=== PATIENT | female | born 1980 | race Hispanic/Latino ===

== ENCOUNTER 2019-01-11 17:43 | Emergency (ER) | payer OTHER, SELFPAY ==
[2019-01-11 17:53] VITALS: BP 133/80; PULSE 101; RESP 16; TEMP 36.9; O2SAT 97; BMI 37.0
--- NOTE | 2019-01-11 17:57 | DI.RAD.S_ITS ---
PROCEDURE: XR FINGER LT MIN 2V INDICATIONS: L 5th finger pain in metacarpal and proximal phalange TECHNIQUE: AP hand, 2 views of the fifth finger(s) acquired. COMPARISON: None. FINDINGS: Bones: No fractures or dislocations. No suspicious bony lesions. Soft tissues: No suspicious soft tissue calcifications. IMPRESSION: Left fifth finger without acute osseous abnormalities. Dictated by: Stephen Kemp M.D. on 01/11/2019 at 18:39 Approved by: Stephen Kemp M.D. on 01/11/2019 at 18:41
--- NOTE | 2019-01-11 18:49 | ED.UPPEXIN ---
HPI - Extremity Injury (Upper) <Marni Gomez PA-C - Last Filed: 01/11/19 21:54> General Chief Complaint: Extremity Injury, Upper Stated Complaint: heavy door caught left hand pinky at work Time Seen by Provider: 01/11/19 18:39 Source: patient Mode of arrival: ambulatory Limitations: no limitations History of Present Illness HPI narrative: this 38-year-old right-handed female caught her left pinky finger on a heavy door as it was swinging this morning and it bent backwards. She states that she started to have pain right away but felt like she try to continue working and she worked today. She states that pain has been increasing and she has felt warm, so thought she should come in for evaluation. She denies any other injury, no pain further back in the hand or wrist. She states that pain is worse with trying to move the finger or touching the area. She is healthy with no ongoing medical problems, denies possibility of . Related Data Home Medications Medication Instructions Recorded Confirmed No Known Home Medications 01/11/19 01/11/19 Allergies Allergy/AdvReac Type Severity Reaction Status Date / Time No Known Drug Allergies Allergy Verified 01/11/19 17:57 Review of Systems <Marni Gomez PA-C - Last Filed: 01/11/19 21:54> Review of Systems ROS Unobtainable: All systems reviewed & are unremarkable except as noted in HPI and below PFSH <Marni Gomez PA-C - Last Filed: 01/11/19 21:54> Medical History No pertinent family history (Chronic) No pertinent past medical history (Chronic) Surgical History No pertinent past surgical history (Chronic) Social History Smoking Status: Never smoker Social History Smoking Status: Never smoker Exam <Marni Gomez PA-C - Last Filed: 01/11/19 21:54> Narrative Exam Narrative: GENERAL APPEARANCE: Patient sitting comfortably, in no distress. LUNGS: Clear to auscultation bilaterally. HEART: Rate and rhythm regular without murmur, normal S1 and S2, no S3 or S4. MUSCULOSKELETAL: Left hand there is no effusion. She is tender over the 5th MCP joint and proximal finger. No tenderness from the PIP distal. No tenderness over the wrist or remainder of the hand. She has full flexion extension of left 5th finger. Strength is intact in all varghese against resistance. She is tender with extension and more so with palpation. NEUROVASCULAR: left hand fingers are warm and pink with brisk cap refill, sensation is grossly intact Initial Vital Signs Initial Vital Signs: Vital Signs Temperature 98.4 F 01/11/19 17:53 Pulse Rate 101 H 01/11/19 17:53 Respiratory Rate 16 01/11/19 17:53 Blood Pressure 133/80 01/11/19 17:53 Pulse Oximetry 97 01/11/19 17:53 <DO Christiano Olvera Last Filed: 01/12/19 01:20> Initial Vital Signs Initial Vital Signs: Vital Signs Temperature 98.4 F 01/11/19 17:53 Pulse Rate 101 H 01/11/19 17:53 Respiratory Rate 16 01/11/19 17:53 Blood Pressure 133/80 01/11/19 17:53 Pulse Oximetry 97 01/11/19 17:53 Course <DINESH Soriano Last Filed: 01/11/19 21:54> Additional Information: Finger was placed in a single sided metal splint crossing the MCP and IP joint for immobilization and protection. Work restrictions given and L&I and work forms completed. Orders Ordered: ED Orders 01/11/19 17:57 XR finger LT min 2V Stat Vital Signs - 8 hr 01/11/19 17:53 01/11/19 19:36 Temperature 98.4 F Pulse Rate 101 H 78 Respiratory Rate 16 18 Blood Pressure 133/80 Pulse Oximetry 97 99 <DO Christiano Olvera Last Filed: 01/12/19 01:20> Orders Ordered: ED Orders 01/11/19 17:57 XR finger LT min 2V Stat Vital Signs - 8 hr 01/11/19 17:53 01/11/19 19:36 Temperature 98.4 F Pulse Rate 101 H 78 Respiratory Rate 16 18 Blood Pressure 133/80 Pulse Oximetry 97 99 MDM - Extremity Injury (Upper) <DINESH Soriano Last Filed: 01/11/19 21:54> Imaging Data hand: Radiologist's impression: [address] [address] XRay Report Signed Patient: Juhi Valencia MMR#: [id number] : 1980Acct:[id number] Age/Sex: 38 / FDate of Service: 01/11/19 Loc: ED Accession Number: [id number] Procedure: XR finger LT min 2V Ordering Provider: Dante Cabrera M.D. PROCEDURE: XR FINGER LT MIN 2V INDICATIONS: L 5th finger pain in metacarpal and proximal phalange TECHNIQUE: AP hand, 2 views of the fifth finger(s) acquired. COMPARISON: None. FINDINGS: Bones: No fractures or dislocations. No suspicious bony lesions. Soft tissues: No suspicious soft tissue calcifications. IMPRESSION: Left fifth finger without acute osseous abnormalities. Dictated by: Stephen Kemp M.D. on 01/11/2019 at 18:39 Approved by: Stephen Kemp M.D. on 01/11/2019 at 18:41 Discharge Plan Departure Patient Disposition: Home Clinical Impression: Finger sprain Qualifiers: Encounter type: initial encounter Finger: little finger Sprain of finger site: metacarpophalangeal joint Laterality: left Qualified Code(s): S63.657A - Sprain of metacarpophalangeal joint of left little finger, initial encounter Discharge Date/Time: 01/11/19 19:37 Interventions: ED Discharge Assessment Last Done: 01/11/19 19:36 Instructions: DI for Finger Sprain, DI for Finger Extensor Tendon Injury Activity Restrictions/Additional Instructions: As we talked about, I think you strained your finger muscles and the tendons that helped the finger extend when you caught it on the door. On testing today, your strength seems to be intact, and I think that this will get better if you keep it immobilized in the splint. Please wear that 24/ unless you are showering. Please start on Aleve, 2 tablets twice daily, or ibuprofen, 4 tablets every 8 hr to help with pain and inflammation. Please see your PCP or the L and I provider if this is not substantially improved in 1 week. As we discussed, sometimes repeat x-rays and further testing are needed if you are not improving as expected. Please avoid pushing and pulling and repetitive motion with the finger while you are at work. You can do work that you are able to perform with the splint on. Prescriptions: No Action No Known Home Medications RF: 0 Referrals: [facility] [Provider Group] Stand Alone Forms: Work Release Note <Jovan Lawson DO - Last Filed: 01/12/19 01:20> Cosign ED Attending Jose Attestation: I was immediately available in the department for consultation. Documentation has been reviewed. I agree with assessment and plan.
[2019-01-11 19:36] VITALS: PULSE 78; RESP 18; O2SAT 99
== END 2019-01-11 19:37 | disposition home or self-care (01) ==
PROVIDERS: Emergency Provider Internal Medicine
DX: S63.657A Sprain of metacarpophalangeal joint of left little finger, initial encounter (principal); W22.8XXA Striking against or struck by other objects, initial encounter; Y99.0 Civilian activity done for income or pay
CPT/HCPCS: 29130; 73140; 99282; 99283

== ENCOUNTER 2019-09-21 14:39 | Emergency (ER) | payer OTHER, SELFPAY ==
[2019-09-21 15:49] VITALS: BP 151/84; PULSE 88; RESP 16; TEMP 37; O2SAT 99; BMI 36.8
[2019-09-21] MEDS: IBUPROFEN 400 MG TABLET 800 MG PO (16:02)
--- NOTE | 2019-09-21 16:04 | DI.RAD.S_ITS ---
PROCEDURE: XR LUMBAR SPINE 2-3V INDICATIONS: Lumbar spinal pain after injury TECHNIQUE: 3 views of the lumbar spine were acquired. COMPARISON: None. FINDINGS: Bones: There is mild grade 1 anterolisthesis at the L5-S1 level, with apparent pars defects. No fractures are seen. There is mild disc space narrowing seen at L4-L5 level. The disc heights otherwise appear well-preserved. 5 nonrib-bearing, lumbar type vertebral bodies are seen. No suspicious lytic or blastic lesions are seen. No significant scoliotic curvature can be seen. Soft tissues: Overlying bowel gas pattern is normal. No suspicious soft tissue calcifications. IMPRESSION: No acute fractures are seen. If there is point tenderness (or other clinical suspicion for a fracture not seen on these images) then a dedicated CT could be considered for further evaluation, as clinically appropriate. Focal lower lumbar spine degenerative changes are seen. Dictated by: Baldev Bishop M.D. on 09/21/2019 at 15:39 Approved by: Baldev Bishop M.D. on 09/21/2019 at 15:40
[2019-09-21 16:05] VITALS: BP 151/84; PULSE 88; RESP 16; TEMP 37; O2SAT 99; BMI 36.8
--- NOTE | 2019-09-21 16:27 | PC.NURSE ---
patient is tender to palpation along lumbar spine down to tailbone. reports lower back pain with shooting pain into left buttocks. 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
--- NOTE | 2019-09-21 19:46 | ED_ITS ---
HPI - Back Pain/Injury <JODI Lee - Last Filed: 09/21/19 19:55> General Chief Complaint: Back Pain/Injury Stated Complaint: Hurt Lower Middle Back Time Seen by Provider: 09/21/19 15:55 Source: patient Mode of arrival: Ambulatory Limitations: no limitations History of Present Illness HPI Narrative: 39-year-old female presents emergency department today complaining of bilateral lower back pain. She states she was attempting to catch a patient that was falling on of weight your and was pulled forward flexing her lower lumbar spine. She reports feeling a sudden sharp pain radi ating across her back, she states right now her pain is an aching 5/10 that was not better with ibuprofen. She has used ice to the area without relief. Patient denies any numbness, tingling, loss of bowel or bladder control, fevers, chills, nausea, vomiting, diarrhea, or other concerns. Patient states she has a history of back pain but this pain at this time is worse than her usual back pain. Related Data Previous Rx's Medication Instructions Recorded cyclobenzaprine 10 mg PO TID #14 tab 09/21/19 Allergies Allergy/AdvReac Type Severity Reaction Status Date / Time No Known Drug Allergies Allergy Verified 09/21/19 15:53 Review of Systems <JODI Lee - Last Filed: 09/21/19 19:55> Review of Systems Narrative: REVIEW OF SYSTEMS: GENERAL: Denies fever or chills. HENT: No head trauma. EYES: No double vision or vision loss. CARDIOVASCULAR: No chest pain or syncope. RESPIRATORY: No shortness of breath or cough. GASTROINTESTINAL: No nausea, vomiting, diarrhea, or constipation. GENITOURINARY: No flank pain or dysuria. MUSCULOSKELETAL: Complains of lumbar pain, see HPI. INTEGUMENTARY: No rash, lesions, or pruritus. NEURO: No numbness, tingling. PSYCH: No behavior or mood changes. Patient History <JODI Lee - Last Filed: 09/21/19 19:55> Medical History No pertinent family history (Chronic) No pertinent past medical history (Chronic) Surgical History No pertinent past surgical history (Chronic) Social History Smoking Status: Never smoker alcohol intake frequency: 0-2 drinks per day Substance Use Type: does not use Exam <JODI Lee - Last Filed: 09/21/19 19:55> Narrative Exam Narrative: PHYSICAL EXAMINATION: GENERAL: Well groomed, alert, and cooperative. Answers questions promptly and appropriately. Vital signs noted. HENT: Normocephalic, atraumatic. EYES: Symmetrical, sclera white, no periorbital swelling. CARDIOVASCULAR: S1 and S2 sounds normal. Regular rate and rhythm, no murmurs, clicks, or bruits. No pedal edema. RESPIRATORY: Normal respiratory rate, trachea midline, airway patent. No stridor, nasal flaring or accessory muscle use. Lungs are clear in all varghese. MUSCULOSKELETAL: Mid lumbar paraspinal vertebral tenderness, tenderness to upper lumbar spine with palpation. Full range of motion to lower spine, equal strength to upper and lower extremities against resistance. Patient reports back pain with left straight leg raise. No erythema, ecchymosis, or rashes surrounding area. Normal gait and coordination. Equal tone and mass bilaterally. EXTREMITIES: CMS intact. No pedal edema. SKIN: Warm, dry, soft, appropriate color for ethnicity. No lesions, rashes, or wounds. NEURO: Alert and Oriented X 3. No sensory deficits. PSYCH: Appropriate affect and mood. Initial Vital Signs Initial Vital Signs: Vital Signs Temperature 98.6 F 09/21/19 15:49 Pulse Rate 88 09/21/19 15:49 Respiratory Rate 16 09/21/19 15:49 Blood Pressure 151/84 H 09/21/19 15:49 Pulse Oximetry 99 09/21/19 15:49 <Dante Cabrera MD - Last Filed: 09/21/19 23:47> Initial Vital Signs Initial Vital Signs: Vital Signs Temperature 98.6 F 09/21/19 15:49 Pulse Rate 88 09/21/19 15:49 Respiratory Rate 16 09/21/19 15:49 Blood Pressure 151/84 H 09/21/19 15:49 Pulse Oximetry 99 09/21/19 15:49 Course <JODI Lee - Last Filed: 09/21/19 19:55> Course Course Narrative: Ibuprofen and ice in the emergency department, she reports no change in pain after administration of medication. Orders Ordered: ED Orders 09/21/19 16:04 XR lumbar spine 2-3V Stat Discontinued Medications Ibuprofen (Advil) 800 mg PO NOW ONE Stop: 09/21/19 15:56 Last Admin: 09/21/19 16:02 Dose: 800 mg Documented by: YOSSI Vital Signs Vital signs: Vital Signs - 8 hr 09/21/19 15:49 09/21/19 16:05 09/21/19 19:52 Temperature 98.6 F 98.6 F Pulse Rate 88 88 85 Respiratory Rate 16 16 16 Blood Pressure 151/84 H 151/84 H 124/78 Pulse Oximetry 99 99 97 <Dante Cabrera MD - Last Filed: 09/21/19 23:47> Orders Ordered: ED Orders 09/21/19 16:04 XR lumbar spine 2-3V Stat Discontinued Medications Ibuprofen (Advil) 800 mg PO NOW ONE Stop: 09/21/19 15:56 Last Admin: 09/21/19 16:02 Dose: 800 mg Documented by: YOSSI Vital Signs Vital signs: Vital Signs - 8 hr 09/21/19 15:49 09/21/19 16:05 09/21/19 19:52 Temperature 98.6 F 98.6 F Pulse Rate 88 88 85 Respiratory Rate 16 16 16 Blood Pressure 151/84 H 151/84 H 124/78 Pulse Oximetry 99 99 97 MDM - Back Pain/Injury <JODI Lee - Last Filed: 09/21/19 19:55> Medical Records Attestation: I reviewed the patient's medical records. Lab Data Attestation: I reviewed the patient's lab results. Imaging Data Lumbar Xray: Radiologist's impression: [address] [address] XRay Report Signed Patient: Juhi Valencia [facility]#: [id number] : 1980Acct:[id number] Age/Sex: 39 / FDate of Service: 09/21/19 Loc: ED Accession Number: [id number] Procedure: XR lumbar spine 2-3V Ordering Provider: Trish Jimenez PROCEDURE: XR LUMBAR SPINE 2-3V INDICATIONS: Lumbar spinal pain after injury TECHNIQUE: 3 views of the lumbar spine were acquired. COMPARISON: None. FINDINGS: Bones: There is mild grade 1 anterolisthesis at the L5-S1 level, with apparent pars defects. No fractures are seen. There is mild disc space narrowing seen at L4-L5 level. The disc heights otherwise appear well-preserved. 5 nonrib-bearing, lumbar type vertebral bodies are seen. No suspicious lytic or blastic lesions are seen. No significant scoliotic curvature can be seen. Soft tissues: Overlying bowel gas pattern is normal. No suspicious soft tissue calcifications. IMPRESSION: No acute fractures are seen. If there is point tenderness (or other clinical suspicion for a fracture not seen on these images) then a dedicated CT could be considered for further evaluation, as clinically appropriate. Focal lower lumbar spine degenerative changes are seen. Dictated by: Baldev Bishop M.D. on 09/21/2019 at 15:39 Approved by: Baldev Bishop M.D. on 09/21/2019 at 15:40 MDM Narrative Medical decision making narrative: This is a 39-year-old female with a history of back pain, that reports a change in back pain after being pulled during the transfer of the patient using a jani lift. Patient had lumbar tenderness which I suspect is due to focal degenerative changes seen on x-ray. I suspect the acute pain is due to lumbar strain from the incident due to findings on exam, x- ray results, and description of pain. Patient was given ibuprofen in the emergency department without much pain relief. She was prescribed cyclob enzaprine and given 2 days off of work. She was given lifting restrictions for the next week. Patient was encouraged to follow up with her primary care provider in the next few weeks for re-evaluation. Return precautions given for worsening symptoms. Discharge Plan Departure Patient Disposition: Home Clinical Impression: Strain of lumbar region Qualifiers: Encounter type: initial encounter Qualified Code(s): S39.012A - Strain of muscle, fascia and tendon of lower back, initial encounter Discharge Date/Time: 09/21/19 19:53 Instructions: DI for Back Strain or Sprain Activity Restrictions/Additional Instructions: Thank you for entrusting me with your care today. As discussed, your x-rays are negative for any fractures. I suspect your pain is caused by a strain. Please take ibuprofen as needed for pain for the next few days. You are being prescribed a muscle relaxer. You have been prescribed a narcotic medication, this medication can make you drowsy. Do not drive while using this medication or perform activities that require mental alertness. Follow up with your primary care provider in 2-3 weeks for re-evaluation of symptoms continue. Return emergency department for new or worsening symptoms such as chest pain, shortness of breath, or other concerns Prescriptions: New cyclobenzaprine 10 mg tablet 10 mg PO TID Qty: 14 RF: 0 Stand Alone Forms: Work Release Note
[2019-09-21 19:52] VITALS: BP 124/78; PULSE 85; RESP 16; O2SAT 97
== END 2019-09-21 19:53 | disposition home or self-care (01) ==
PROVIDERS: Emergency Provider Nurse Practitioner
DX: S39.012A Strain of muscle, fascia and tendon of lower back, initial encounter (principal); X50.1XXA Overexertion from prolonged static or awkward postures, initial encounter; X50.0XXA Overexertion from strenuous movement or load, initial encounter; Y93.F2 Activity, caregiving, lifting; Y99.0 Civilian activity done for income or pay
CPT/HCPCS: 72100; 99282; 99283

== ENCOUNTER → 2023-03-27 09:39 | Outpatient (CLI) | payer SELFPAY ==
[2023-03-30 14:41] LABS: QuantiFERON Mitogen Value >10.00 IU/mL (.); QuantiFERON Nil Value 0.08 IU/mL (.); QuantiFERON TB Gold Plus Negative (Negative); QuantiFERON TB1 Ag Value 0.22 IU/mL (.); QuantiFERON TB2 Ag Value 0.17 IU/mL (.)
== END ==
PROVIDERS: PCP Internal Medicine; Referring Provider Nurse Practitioner Family; Visit Provider Nurse Practitioner Family
DX: Z11.1 Encounter for screening for respiratory tuberculosis (principal)
CPT/HCPCS: 36415; 86480